=== PATIENT | male | born 1940 | race Caucasian/White ===

== ENCOUNTER 2017-11-03 12:01 | Emergency (ER) | payer MEDICARE, MEDICAID ==
[~2017-11-03] VITALS: Ht 180.3 cm; Wt 68.2 kg
[~2017-11-03 12:01] MED LIST: ACET-812 PO; AMLO5TAB4 PO; ASPI-611 PO; ATEN-169 PO; ATOR40TA PO; CHOL500049 PO; FLO0.4C PO; LIDO700A32 TOP; NITR0.4T51 SL; SYN0.1T PO; TERA2CAP4 PO
[2017-11-03] MEDS ORDERED: ketorolac tromethamine 15mg/ml inj. IM ONE (13:30)
[2017-11-03 13:57] VITALS: BP 150/87
== END 2017-11-03 14:24 | disposition home or self-care (01) ==
LOC: ER 12:02
DX: S13.4XXA Sprain of ligaments of cervical spine, initial encounter (principal); S00.81XA Abrasion of other part of head, initial encounter; S80.212A Abrasion, left knee, initial encounter; S80.211A Abrasion, right knee, initial encounter; S50.812A Abrasion of left forearm, initial encounter; I25.10 Atherosclerotic heart disease of native coronary artery without angina pectoris; E78.00 Pure hypercholesterolemia, unspecified; I10 Essential (primary) hypertension; J44.9 Chronic obstructive pulmonary disease, unspecified; E03.9 Hypothyroidism, unspecified; M19.90 Unspecified osteoarthritis, unspecified site; Z90.49 Acquired absence of other specified parts of digestive tract; Z98.890 Other specified postprocedural states; Z60.2 Problems related to living alone; Z88.0 Allergy status to penicillin; Z88.5 Allergy status to narcotic agent; Z79.82 Long term (current) use of aspirin; Z79.899 Other long term (current) drug therapy; W18.39XA Other fall on same level, initial encounter; Y93.89 Activity, other specified; Y92.89 Other specified places as the place of occurrence of the external cause; Y99.8 Other external cause status
CPT/HCPCS: 70450; 72125; 96372; 99284; J1885

== ENCOUNTER 2019-01-13 13:50 | Inpatient (IN) | payer MEDICARE, MEDICAID ==
[~2019-01-13] VITALS: Ht 182.9 cm; Wt 65.9 kg
[2019-01-13] MEDS ORDERED: ondansetron/PF 4mg/2ml inj IV ONE (14:30)
[2019-01-13] MEDS ORDERED: morphine 4 MG/ML inj SYRINge IV PRN (14:30)
[2019-01-13 14:52] LABS: CLARITY,URINE SLIGHTLY CLOUDY (Clear); COLOR,URINE YELLOW (Yellow); GLUCOSE, URINE NEGATIVE (Neg); KETONES,URINE NEGATIVE (Neg); LEUKOCYTE ESTERASE ,URINE SMALL (Neg); NITRITES, URINE NEGATIVE (Neg); OCCULT BLOOD,URINE NEGATIVE (Neg); PROTEIN,URINE TRACE mg/dl (Neg); UA COLLECTION TYPE URINAL
[2019-01-13 14:54] LABS: BASOPHILS % (AUTO) 0.9 % (0-1); EOSINOPHILS # (AUTO) 0.1 X10'3 (0-0.9); EOSINOPHILS % (AUTO) 3.1 % (0-6); HEMATOCRIT 36.3 % (42.0-52.0); HEMOGLOBIN 11.9 g/dl (14.0-17.9); LYMPHOCYTES # (AUTO) 1.1 X10'3 (1.1-4.8); LYMPHOCYTES % (AUTO) 27.7 % (21-51); MEAN CORPUSCULAR HEMOGLOBIN 29.8 PG (27.0-31.0); MEAN CORPUSCULAR HGB CONC 32.9 g/dL (33.0-36.5); MEAN CORPUSCULAR VOLUME 90.6 FL (78-98); MEAN PLATELET VOLUME 9.5 FL (7.4-10.4); MONOCYTES # (AUTO) 0.4 X10'3 (0-0.9); MONOCYTES % (AUTO) 10.7 % (2-12); NEUTROPHILS # (AUTO) 2.4 X10'3 (1.8-7.7); NEUTROPHILS % (AUTO) 57.6 % (42-75); PLATELET COUNT 103 X10'3 (140-440); RED CELL DISTRIBUTION WIDTH 15.3 % (11.5-14.5); WHITE BLOOD COUNT 4.1 X10'3 (4.5-11.0)
[2019-01-13] MEDS ORDERED: LEVO88TA2 PO (14:56)
[2019-01-13 14:59] LABS: HYALINE CASTS 0-3 /LPF (NEGATIVE); MUCUS STRANDS MANY /LPF (Neg); SQUAMOUS EPITHELIAL CELL,UR MANY /LPF (FEW)
[2019-01-13 15:00] LABS: TRANSITIONAL EPI CELLS,URINE FEW /HPF
[2019-01-13 15:01] LABS: BACTERIA,URINE FEW /HPF (Neg); RBC,URINE 0-2 /HPF (0-2)
[2019-01-13 15:07] LABS: PARTIAL THROMBOPLASTIN TIME 27 SECONDS (22-32)
[2019-01-13 15:10] LABS: ALANINE AMINOTRANSFERASE 23 U/L (12-78); ALBUMIN 3.2 G/DL (3.4-5.0); ALBUMIN/GLOBULIN RATIO 1.1 (1.1-1.5); ALKALINE PHOSPHATASE 62 IU/L (46-116); ANION GAP 4 (8-16); ASPARTATE AMINO TRANSFERASE 30 U/L (10-37); BILIRUBIN,TOTAL 0.9 MG/DL (0.1-1.0); BLOOD UREA NITROGEN 15 MG/DL (7-18); BUN/CREATININE RATIO 9.4 (5.4-32.0); CALCIUM 8.2 MG/DL (8.5-10.1); CHLORIDE 105 MMOL/L (99-107); GLUCOSE 98 MG/DL (70-104); POTASSIUM 3.9 MMOL/L (3.5-5.1); SODIUM 142 MMOL/L (135-145); TOTAL CARBON DIOXIDE 32.8 MMOL/L (24-32); TOTAL PROTEIN 6.1 G/DL (6.4-8.2); eGFR 42 ML/MIN
[2019-01-13] MEDS ORDERED: ACET-2119 PO (15:19)
[2019-01-13] MEDS ORDERED: acetaminophen 325mg tablet PO PRN ×2 (15:45)
[2019-01-13] MEDS ORDERED: nitroGLYCERIN 0.4mg SUBLingual tab SL PRN (15:45)
[2019-01-13] MEDS ORDERED: magnesium 2GM in 50ml NS 50 ML IV PRN (15:45)
[2019-01-13] MEDS ORDERED: potassium Cl 20 mEq SR tablet PO PRN ×2 (15:45)
[2019-01-13] MEDS ORDERED: magnesium 4gm in 100ml NS 100 ML IV PRN (15:45)
[2019-01-13] MEDS ORDERED: ipratropium/albuterol 3ml nebule NEB PRN (15:45)
[2019-01-13] MEDS ORDERED: docusate sod 100mg capsule PO PRN (15:45)
[2019-01-13] MEDS ORDERED: potassium CL 10mEq/100ml bag 100 ML IV PRN ×2 (15:45)
[2019-01-13] MEDS ORDERED: magnesium Cl slow-release 64mg tablet PO PRN (15:45)
[2019-01-13] MEDS ORDERED: mag hydrox/Alum hydrox/simeth 30ml oral suspension PO PRN (15:45)
[2019-01-13 18:00] VITALS: BP 148/90
--- NOTE | 2019-01-13 18:00 | NUR ---
RECEIVED PATIENT TO ROOM 4022B. A/O
--- NOTE | 2019-01-13 18:15 | NUR ---
REPORT TO IVAN LEO
--- NOTE | 2019-01-13 18:21 | NUR ---
Patient in room ORTHO 4022. I have received report from Re LEO and had the opportunity to ask questions and assume patient care.
--- NOTE | 2019-01-13 18:29 | NUR ---
Called Dr. Duenas over telephone about pt's spasm pains. Cotto's traction ordered.
[2019-01-13] MEDS ORDERED: baclofen 10mg tablet PO PRN (20:25)
[2019-01-13] MEDS: tamsulosin 0.4mg capsule PO SCH (20:44)
[2019-01-13] MEDS: atorvastatin 20mg tablet PO SCH (20:44)
[2019-01-13 22:00] VITALS: BP 133/62
[2019-01-13] MEDS: normal saline 1000ml 1,000 ML IV SCH (22:20)
[2019-01-14 01:59] LABS: COLOR,URINE YELLOW (Yellow); GLUCOSE, URINE NEGATIVE (Neg); KETONES,URINE TRACE mg/dl (Neg); LEUKOCYTE ESTERASE ,URINE SMALL (Neg); NITRITES, URINE NEGATIVE (Neg); OCCULT BLOOD,URINE NEGATIVE (Neg); PROTEIN,URINE NEGATIVE (Neg)
[2019-01-14 02:12] LABS: CLARITY,URINE SLIGHTLY CLOUDY (Clear); UA COLLECTION TYPE NON-SPECIFIED
[2019-01-14 02:14] LABS: BACTERIA,URINE 1+ /HPF (Neg); MUCUS STRANDS MODERATE /LPF (Neg); RBC,URINE 0-2 /HPF (0-2); SQUAMOUS EPITHELIAL CELL,UR MODERATE /LPF (FEW)
[2019-01-14] MEDS: normal saline 1000ml 1,000 ML IV SCH (04:15)
[2019-01-14 05:33] VITALS: BP 155/85
--- NOTE | 2019-01-14 06:18 | NUR ---
Problems reprioritized. Patient report given, questions answered & plan of care reviewed with Alessia LEO.
[2019-01-14 07:05] LABS: BASOPHILS % (AUTO) 0.7 % (0-1); EOSINOPHILS # (AUTO) 0.1 X10'3 (0-0.9); EOSINOPHILS % (AUTO) 2.4 % (0-6); LYMPHOCYTES # (AUTO) 1.2 X10'3 (1.1-4.8); LYMPHOCYTES % (AUTO) 22.9 % (21-51); MEAN CORPUSCULAR HEMOGLOBIN 29.7 PG (27.0-31.0); MEAN CORPUSCULAR HGB CONC 33.2 g/dL (33.0-36.5); MEAN CORPUSCULAR VOLUME 89.5 FL (78-98); MEAN PLATELET VOLUME 9.6 FL (7.4-10.4); MONOCYTES # (AUTO) 0.6 X10'3 (0-0.9); MONOCYTES % (AUTO) 11.1 % (2-12); NEUTROPHILS # (AUTO) 3.2 X10'3 (1.8-7.7); NEUTROPHILS % (AUTO) 62.9 % (42-75); PLATELET COUNT 101 X10'3 (140-440); RED BLOOD COUNT 4.02 X10'6 (4.70-6.10); RED CELL DISTRIBUTION WIDTH 15.4 % (11.5-14.5); WHITE BLOOD COUNT 5.2 X10'3 (4.5-11.0)
[2019-01-14 07:29] LABS: ALANINE AMINOTRANSFERASE 27 U/L (12-78); ALBUMIN 3.2 G/DL (3.4-5.0); ALBUMIN/GLOBULIN RATIO 1.1 (1.1-1.5); ALKALINE PHOSPHATASE 66 IU/L (46-116); ANION GAP 5 (8-16); ASPARTATE AMINO TRANSFERASE 29 U/L (10-37); BILIRUBIN,TOTAL 1.2 MG/DL (0.1-1.0); BLOOD UREA NITROGEN 15 MG/DL (7-18); BUN/CREATININE RATIO 9.3 (5.4-32.0); CALCIUM 8.4 MG/DL (8.5-10.1); CHLORIDE 106 MMOL/L (99-107); CREATININE 1.62 MG/DL (0.60-1.10); GLUCOSE 92 MG/DL (70-104); MAGNESIUM 1.6 MG/DL (1.5-2.4); POTASSIUM 4.3 MMOL/L (3.5-5.1); SODIUM 142 MMOL/L (135-145); TOTAL CARBON DIOXIDE 30.7 MMOL/L (24-32); TOTAL PROTEIN 6.1 G/DL (6.4-8.2); eGFR 41 ML/MIN
[2019-01-14] MEDS: K and/or MAG REPLACEMENT MC SCH (07:40)
[2019-01-14] MEDS: levoTHYROXINE 88mcg tablet PO SCH (07:57)
[2019-01-14] MEDS: enoxaparin 40mg/0.4ml syringe SQ SCH (07:58)
[2019-01-14] MEDS: atenolol 25mg tablet PO SCH (08:00)
[2019-01-14] MEDS ORDERED: aspirin 81mg tab.chew PO SCH (08:00)
[2019-01-14] MEDS ORDERED: atenolol 50mg tablet PO SCH (08:00)
--- NOTE | 2019-01-14 14:38 | NUR ---
Joint Replacement consult: Pt/caregiver seen by CHARLOTTE for written/verbal high protein ed w/ RD contact information provided. Pt agrees to cottage cheese and fruit breakfasts, raw strawberry and tomato allergies. Dietary notified and EMR updated. Addendum: 01/14/19 at [address] Amended: Links added.
[2019-01-14] MEDS: Terazosin 1mg capsule PO SCH (15:48)
[2019-01-14 18:00] VITALS: BP 134/74
--- NOTE | 2019-01-14 18:01 | NUR ---
Problems reprioritized. Patient report given, questions answered & plan of care reviewed with TRUMAN LEO.
--- NOTE | 2019-01-14 18:15 | NUR ---
Received report from Alessia LEO, assumed care of patient.
[2019-01-14] MEDS: tamsulosin 0.4mg capsule PO SCH (20:54)
[2019-01-14] MEDS: atorvastatin 20mg tablet PO SCH (20:54)
[2019-01-15] VITALS (15 sets, daily range): BP systolic 96–162; BP diastolic 52–87
--- NOTE | 2019-01-15 06:15 | NUR ---
Report given to Heena LEO.
[2019-01-15 06:44] LABS: ALANINE AMINOTRANSFERASE 23 U/L (12-78); ALKALINE PHOSPHATASE 63 IU/L (46-116); ANION GAP 8 (8-16); ASPARTATE AMINO TRANSFERASE 24 U/L (10-37); BILIRUBIN,TOTAL 1.4 MG/DL (0.1-1.0); BLOOD UREA NITROGEN 17 MG/DL (7-18); BUN/CREATININE RATIO 11.1 (5.4-32.0); CALCIUM 8.2 MG/DL (8.5-10.1); CHLORIDE 105 MMOL/L (99-107); CREATININE 1.53 MG/DL (0.60-1.10); GLUCOSE 98 MG/DL (70-104); MAGNESIUM 1.6 MG/DL (1.5-2.4); POTASSIUM 4.3 MMOL/L (3.5-5.1); SODIUM 141 MMOL/L (135-145); TOTAL CARBON DIOXIDE 28.1 MMOL/L (24-32); eGFR 44 ML/MIN
[2019-01-15 06:56] LABS: BASOPHILS # (AUTO) 0.1 X10'3 (0-0.2); BASOPHILS % (AUTO) 0.9 % (0-1); EOSINOPHILS # (AUTO) 0.1 X10'3 (0-0.9); EOSINOPHILS % (AUTO) 1.2 % (0-6); HEMATOCRIT 36.5 % (42.0-52.0); LYMPHOCYTES # (AUTO) 1.2 X10'3 (1.1-4.8); MEAN CORPUSCULAR HEMOGLOBIN 29.4 PG (27.0-31.0); MEAN CORPUSCULAR HGB CONC 32.8 g/dL (33.0-36.5); MEAN CORPUSCULAR VOLUME 89.6 FL (78-98); MEAN PLATELET VOLUME 9.2 FL (7.4-10.4); MONOCYTES # (AUTO) 0.7 X10'3 (0-0.9); MONOCYTES % (AUTO) 11.6 % (2-12); NEUTROPHILS # (AUTO) 4.4 X10'3 (1.8-7.7); NEUTROPHILS % (AUTO) 68.3 % (42-75); PLATELET COUNT 97 X10'3 (140-440); RED BLOOD COUNT 4.08 X10'6 (4.70-6.10); RED CELL DISTRIBUTION WIDTH 15.5 % (11.5-14.5); WHITE BLOOD COUNT 6.4 X10'3 (4.5-11.0)
[2019-01-15] MEDS ORDERED: acetaminophen 325mg tablet PO PRN (07:03)
[2019-01-15] MEDS: K and/or MAG REPLACEMENT MC SCH (07:08)
[2019-01-15] MEDS: atenolol 25mg tablet PO SCH (07:52)
[2019-01-15] MEDS: enoxaparin 40mg/0.4ml syringe SQ SCH (07:52)
[2019-01-15] MEDS: levoTHYROXINE 88mcg tablet PO SCH (07:52)
[2019-01-15] MEDS: Terazosin 1mg capsule PO SCH (15:33)
[2019-01-15] MEDS ORDERED: CLINDAMYCIN/D5W 900mg/50ml 50 ML IV ONE (18:00)
--- NOTE | 2019-01-15 18:21 | NUR ---
Problems reprioritized. Patient report given, questions answered & plan of care reviewed with AHMET Avila.
[2019-01-15] MEDS ORDERED: vancomycin 1,000mg inj ONE (18:42)
[2019-01-15] MEDS ORDERED: heparin 10,000 units/1 ML INJ ONE (19:14)
[2019-01-15] MEDS ORDERED: tetracaine 1% (10mg/ml) pres. free inj. ONE (20:01)
[2019-01-15] MEDS ORDERED: fentaNYL/PF 50MCG/1 ML 2ML syringe ONE (20:02)
[2019-01-15] MEDS ORDERED: MIDAZolam 5mg/5ml vial ONE (20:03)
[2019-01-15] MEDS ORDERED: ringers solution, lacted 1,000 ML IV SCH (21:17)
[2019-01-15] MEDS ORDERED: ondansetron/PF 4mg/2ml inj IV PRN (21:20)
[2019-01-15] MEDS ORDERED: meperidine/PF 25mg/ml syringe IV PRN ×3 (21:20)
[2019-01-15] MEDS ORDERED: proCHLORperazine 10 MG/2 ml inj IV PRN (21:20)
[2019-01-15] MEDS ORDERED: morphine 4 MG/ML inj SYRINge IV PRN ×2 (21:20)
--- NOTE | 2019-01-15 22:15 | NUR ---
Received from OR via BED , accompanied by Anesthesiologist DR LUQUE and report given by Anesthesiolgist. PATIENT WAKING UP, DENIES PAIN, V/S WNL, NEUROVASCULAR CHECKS INTACT, 20G PIV RUE , ISLAND DRESSING TO LEFT HIP CDI, SCD ON, TELE ON
--- NOTE | 2019-01-15 22:58 | NUR ---
Patient in room ORTHO 4022. I have received report from AHMET Naik and had the opportunity to ask questions and assume patient care. Addendum: 01/15/19 at 2258 by Margarita Bo RN Amended: Links added.
--- NOTE | 2019-01-15 23:05 | NUR ---
PATIENT ORIENTED X4, DENIES PAIN, V/S WNL, NEUROVASCULAR CHECKS INTACT, 20G PIV RUE , ISLAND DRESSING TO LEFT HIP CDI, SCD ON, TELE ON. PATIENT TAKEN TO ORTHO 4022B WITH ALL BELONGINGS AND HOOKED UP TO MONITORS IN ROOM AND REPORT GIVEN TO SEWING MACHINE REPAIRER HELPER WHO HAS TAKEN OVER PATIENT CARE.
[2019-01-15] MEDS: tamsulosin 0.4mg capsule PO SCH ×2 (23:28→23:31)
[2019-01-15] MEDS: atorvastatin 20mg tablet PO SCH ×2 (23:28→23:31)
--- NOTE | 2019-01-15 23:56 | NUR ---
Patient's sats were 87% on room air attempted to place on NC 2 L/M but patient refused Charge Nurse notified.
[2019-01-16] VITALS (12 sets, daily range): BP systolic 100–140; BP diastolic 49–72
[2019-01-16] MEDS: morphine 2 MG/ML inj. syringe IV PRN ×2 (03:05→10:39)
--- NOTE | 2019-01-16 03:42 | NUR ---
patient was moaning and was in pain, pain medication was given, island dressing to lt. hip was reinforced as it was soaked and saturated
[2019-01-16] MEDS: ondansetron/PF 4mg/2ml inj IV PRN ×2 (03:51→10:38)
--- NOTE | 2019-01-16 04:12 | NUR ---
pt was moaning and in a lot pain even after getting morphine of 2 mg, called Dr. Raymond with order to given 0.5mg q2h prn,
[2019-01-16] MEDS: HYDROmorphone inj. 0.5 MG/0.5 ML DISP.SYRIN IV PRN (04:32)
--- NOTE | 2019-01-16 05:46 | NUR ---
0.5mg of IV hydromorphone was given to patient, patient went to sleep and no note moaning at this time. F/C taken out and tolerated well and denies discomfort.
[2019-01-16] MEDS ORDERED: oxyCODONE/APAP 10/325mg tablet PO PRN (06:45)
--- NOTE | 2019-01-16 06:48 | NUR ---
Problems reprioritized. Patient report given, questions answered & plan of care reviewed with Sakina/AHMET Dockery's.
[2019-01-16 06:54] LABS: BASOPHILS % (AUTO) 0.2 % (0-1); EOSINOPHILS % (AUTO) 0.1 % (0-6); HEMOGLOBIN 9.4 g/dl (14.0-17.9); LYMPHOCYTES # (AUTO) 0.4 X10'3 (1.1-4.8); LYMPHOCYTES % (AUTO) 5.4 % (21-51); MEAN CORPUSCULAR HEMOGLOBIN 29.9 PG (27.0-31.0); MEAN CORPUSCULAR HGB CONC 33.5 g/dL (33.0-36.5); MEAN CORPUSCULAR VOLUME 89.2 FL (78-98); MEAN PLATELET VOLUME 9.7 FL (7.4-10.4); MONOCYTES # (AUTO) 0.9 X10'3 (0-0.9); MONOCYTES % (AUTO) 11.7 % (2-12); NEUTROPHILS % (AUTO) 82.6 % (42-75); PLATELET COUNT 85 X10'3 (140-440); RED BLOOD COUNT 3.13 X10'6 (4.70-6.10); RED CELL DISTRIBUTION WIDTH 14.9 % (11.5-14.5); WHITE BLOOD COUNT 7.3 X10'3 (4.5-11.0)
--- NOTE | 2019-01-16 06:57 | NUR ---
Patient in room ORTHO 4022B. I have received report from FABI ELO and had the opportunity to ask questions and assume patient care.
[2019-01-16 07:07] LABS: ALANINE AMINOTRANSFERASE 19 U/L (12-78); ALBUMIN 2.3 G/DL (3.4-5.0); ALBUMIN/GLOBULIN RATIO 0.9 (1.1-1.5); ALKALINE PHOSPHATASE 49 IU/L (46-116); ANION GAP 8 (8-16); ASPARTATE AMINO TRANSFERASE 40 U/L (10-37); BILIRUBIN,TOTAL 1.3 MG/DL (0.1-1.0); BLOOD UREA NITROGEN 22 MG/DL (7-18); BUN/CREATININE RATIO 16.2 (5.4-32.0); CALCIUM 7.6 MG/DL (8.5-10.1); CHLORIDE 104 MMOL/L (99-107); CREATININE 1.36 MG/DL (0.60-1.10); GLUCOSE 126 MG/DL (70-104); MAGNESIUM 1.3 MG/DL (1.5-2.4); POTASSIUM 4.2 MMOL/L (3.5-5.1); SODIUM 139 MMOL/L (135-145); eGFR 51 ML/MIN
[2019-01-16] MEDS: enoxaparin 40mg/0.4ml syringe SQ SCH (08:00)
[2019-01-16] MEDS: K and/or MAG REPLACEMENT MC SCH (08:00)
[2019-01-16] MEDS: levoTHYROXINE 88mcg tablet PO SCH (08:15)
[2019-01-16] MEDS: atenolol 25mg tablet PO SCH (08:15)
[2019-01-16] MEDS ORDERED: potassium Cl 20 mEq SR tablet PO PRN ×2 (09:15)
[2019-01-16] MEDS ORDERED: magnesium Cl slow-release 64mg tablet PO PRN (09:15)
--- NOTE | 2019-01-16 11:09 | NUR ---
PAGER ID: [phone] MESSAGE: Sakina [phone] re Mr Su in 4022b- pt appears dry, only 75 ml dark brown urine output so far today, intake is poor, mouth is dry. Can we start some fluids? maybe x 1 Liter? Thanks!
[2019-01-16] MEDS: lactose-reduced food (Ensure Enlive) - 237ml bottle PO SCH ×2 (13:00→18:00)
[2019-01-16] MEDS: normal saline 1000ml 1,000 ML IV SCH (13:12)
--- NOTE | 2019-01-16 13:27 | NUR ---
TC from RN: agrees to ONS and RN requests which ONS most appropriate for pt since he is willing to try drinking them post-op today. RD recommended ensure enlive TIDWM; dietary notified. Addendum: 01/16/19 at [address] Amended: Links added.
[2019-01-16] MEDS: Terazosin 1mg capsule PO SCH (16:08)
--- NOTE | 2019-01-16 18:11 | NUR ---
Problems reprioritized. Patient report given, questions answered & plan of care reviewed with TRUMAN LEO.
[2019-01-16] MEDS: tamsulosin 0.4mg capsule PO SCH (20:31)
[2019-01-16] MEDS: atorvastatin 20mg tablet PO SCH (20:31)
[2019-01-17] MEDS: normal saline 1000ml 1,000 ML IV SCH ×2 (01:42→16:07)
[2019-01-17] MEDS: oxyCODONE/APAP 10/325mg tablet PO PRN ×2 (05:39→18:11)
[2019-01-17 06:00] VITALS: BP 113/54
[2019-01-17 06:27] LABS: BASOPHILS % (AUTO) 0.1 % (0-1); EOSINOPHILS % (AUTO) 0.1 % (0-6); HEMATOCRIT 26.4 % (42.0-52.0); HEMOGLOBIN 8.9 g/dl (14.0-17.9); LYMPHOCYTES # (AUTO) 0.6 X10'3 (1.1-4.8); LYMPHOCYTES % (AUTO) 8.1 % (21-51); MEAN CORPUSCULAR HEMOGLOBIN 29.9 PG (27.0-31.0); MEAN CORPUSCULAR HGB CONC 33.7 g/dL (33.0-36.5); MEAN CORPUSCULAR VOLUME 88.8 FL (78-98); MEAN PLATELET VOLUME 9.9 FL (7.4-10.4); MONOCYTES % (AUTO) 12.7 % (2-12); NEUTROPHILS # (AUTO) 6.3 X10'3 (1.8-7.7); PLATELET COUNT 103 X10'3 (140-440); RED BLOOD COUNT 2.97 X10'6 (4.70-6.10); RED CELL DISTRIBUTION WIDTH 14.7 % (11.5-14.5)
--- NOTE | 2019-01-17 06:33 | NUR ---
Patient in room ORTHO 4022B. I have received report from TRUMAN LEO and had the opportunity to ask questions and assume patient care.
[2019-01-17 06:43] LABS: ALANINE AMINOTRANSFERASE 25 U/L (12-78); ALBUMIN 2.3 G/DL (3.4-5.0); ALBUMIN/GLOBULIN RATIO 0.8 (1.1-1.5); ALKALINE PHOSPHATASE 46 IU/L (46-116); ANION GAP 6 (8-16); ASPARTATE AMINO TRANSFERASE 72 U/L (10-37); BILIRUBIN,TOTAL 0.8 MG/DL (0.1-1.0); BLOOD UREA NITROGEN 33 MG/DL (7-18); BUN/CREATININE RATIO 18.4 (5.4-32.0); CALCIUM 7.7 MG/DL (8.5-10.1); CHLORIDE 104 MMOL/L (99-107); CREATININE 1.79 MG/DL (0.60-1.10); GLUCOSE 123 MG/DL (70-104); MAGNESIUM 1.6 MG/DL (1.5-2.4); SODIUM 138 MMOL/L (135-145); TOTAL CARBON DIOXIDE 27.6 MMOL/L (24-32); TOTAL PROTEIN 5.3 G/DL (6.4-8.2); eGFR 37 ML/MIN
[2019-01-17] MEDS: K and/or MAG REPLACEMENT MC SCH (07:49)
[2019-01-17] MEDS: lactose-reduced food (Ensure Enlive) - 237ml bottle PO SCH ×3 (07:58→18:00)
[2019-01-17] MEDS: levoTHYROXINE 88mcg tablet PO SCH (08:00)
[2019-01-17] MEDS: atenolol 25mg tablet PO SCH (08:00)
[2019-01-17] MEDS: enoxaparin 40mg/0.4ml syringe SQ SCH (08:00)
[2019-01-17] MEDS: ondansetron/PF 4mg/2ml inj IV PRN ×2 (08:01→13:55)
[2019-01-17] MEDS: HYDROmorphone inj. 0.5 MG/0.5 ML DISP.SYRIN IV PRN (08:08)
[2019-01-17 10:00] VITALS: BP 95/40
--- NOTE | 2019-01-17 11:00 | NUR ---
PAGER ID: [phone] MESSAGE: ODESSA 5430-RE: LIZA VILLAFUERTE 4024O VERNAFRMARY INEFFECTIVE, CAN WE GET ANOTHER ANTINAUSEA MED?
[2019-01-17] MEDS: metoclopramide 5 mg/ml inj IV PRN ×2 (11:30→18:10)
--- NOTE | 2019-01-17 13:09 | NUR ---
PAGER ID: [phone] MESSAGE: Sakina [phone] re Mr Su in 4450h- he is still vomiting after the reglan. Zofran due in an hour. Is there an additional antiemetic we can try?
[2019-01-17] MEDS: Terazosin 1mg capsule PO SCH (14:00)
--- NOTE | 2019-01-17 16:24 | NUR ---
PAGER ID: [phone] MESSAGE: ODESSA 5430-RE: LIZA VILLAFUERTE 1942N...ZOFRAN AND REGLAN INEFFECTIVE, PT STILL VOMITING. CAN I GET AN ORDER FOR ANOTHER ANTIEMETIC?
[2019-01-17 18:00] VITALS: BP 115/74
[2019-01-17] MEDS ORDERED: proCHLORperazine 10 MG/2 ml inj IV PRN (19:25)
[2019-01-17] MEDS: tamsulosin 0.4mg capsule PO SCH (21:04)
[2019-01-17] MEDS: atorvastatin 20mg tablet PO SCH (21:09)
[2019-01-18 05:24] LABS: BASOPHILS % (AUTO) 0.1 % (0-1); EOSINOPHILS % (AUTO) 0.3 % (0-6); HEMATOCRIT 23.9 % (42.0-52.0); HEMOGLOBIN 8.1 g/dl (14.0-17.9); LYMPHOCYTES # (AUTO) 0.5 X10'3 (1.1-4.8); LYMPHOCYTES % (AUTO) 7.1 % (21-51); MEAN CORPUSCULAR HEMOGLOBIN 30.3 PG (27.0-31.0); MEAN CORPUSCULAR VOLUME 88.9 FL (78-98); MEAN PLATELET VOLUME 9.8 FL (7.4-10.4); MONOCYTES # (AUTO) 0.8 X10'3 (0-0.9); MONOCYTES % (AUTO) 11.1 % (2-12); NEUTROPHILS # (AUTO) 5.9 X10'3 (1.8-7.7); NEUTROPHILS % (AUTO) 81.4 % (42-75); PLATELET COUNT 113 X10'3 (140-440); RED BLOOD COUNT 2.69 X10'6 (4.70-6.10); RED CELL DISTRIBUTION WIDTH 14.9 % (11.5-14.5); WHITE BLOOD COUNT 7.2 X10'3 (4.5-11.0)
[2019-01-18] MEDS: normal saline 1000ml 1,000 ML IV SCH (05:24)
[2019-01-18 05:31] LABS: ALANINE AMINOTRANSFERASE 24 U/L (12-78); ALBUMIN 2.2 G/DL (3.4-5.0); ALBUMIN/GLOBULIN RATIO 0.7 (1.1-1.5); ALKALINE PHOSPHATASE 47 IU/L (46-116); ANION GAP 6 (8-16); ASPARTATE AMINO TRANSFERASE 85 U/L (10-37); BILIRUBIN,TOTAL 0.7 MG/DL (0.1-1.0); BLOOD UREA NITROGEN 32 MG/DL (7-18); BUN/CREATININE RATIO 21.3 (5.4-32.0); CALCIUM 7.7 MG/DL (8.5-10.1); CHLORIDE 107 MMOL/L (99-107); GLUCOSE 110 MG/DL (70-104); MAGNESIUM 1.8 MG/DL (1.5-2.4); POTASSIUM 4.1 MMOL/L (3.5-5.1); SODIUM 140 MMOL/L (135-145); TOTAL CARBON DIOXIDE 27.2 MMOL/L (24-32); TOTAL PROTEIN 5.2 G/DL (6.4-8.2); eGFR 45 ML/MIN
[2019-01-18 06:10] VITALS: BP 145/70
--- NOTE | 2019-01-18 06:30 | NUR ---
Patient in room ORTHO 4022. I have received report from Pk LEO and had the opportunity to ask questions and assume patient care.
[2019-01-18] MEDS: metoclopramide 5 mg/ml inj IV PRN (07:58)
[2019-01-18] MEDS: K and/or MAG REPLACEMENT MC SCH (08:00)
[2019-01-18] MEDS: lactose-reduced food (Ensure Enlive) - 237ml bottle PO SCH ×2 (08:00→13:00)
[2019-01-18] MEDS: enoxaparin 40mg/0.4ml syringe SQ SCH (08:06)
[2019-01-18] MEDS: atenolol 25mg tablet PO SCH (08:06)
[2019-01-18] MEDS: levoTHYROXINE 88mcg tablet PO SCH (08:06)
[2019-01-18 10:00] VITALS: BP 102/60
[2019-01-18] MEDS ORDERED: magnesium hydroxide 30ml (MOM) UD suspension PO PRN (10:25)
--- NOTE | 2019-01-18 15:03 | NUR ---
Initial: Pt s/p ORIF periprosthetic left hip. Prior to surgery, PO intake 75-100% avg on meals. Post op, 0-25% PO intake, pt refusing ONS d/t receiving strawberry flavor. CHARLOTTE spoke with pt who reports raw strawberry allergy, d/w dietary. We are now sending chocolate and vanilla flavor ONS. Pt likely not eating d/t nausea and constipation, documented emesis yesterday morning and this morning. Pt constipated, LBM 01/13, pt receiving routine bowel care, reglan started yesterday, PRN MoM given 01/18, PRN colace given 01/18. Will continue to monitor PO intake and ONS acceptance. Recommendation: 1. continue heart healthy diet, ensure enlive TIDWM 2. monitor PO intake and ONS acceptance 3. routine bowel care 4. weight per rx Addendum: 01/18/19 at [address] Amended: Links added. Addendum: 01/18/19 at [address] RD agree with programming intern note
[2019-01-18] MEDS: Terazosin 1mg capsule PO SCH (15:14)
--- NOTE | 2019-01-18 16:05 | NUR ---
Patient discharged with kateryna galeano on [facility]. Patient had a cell-phone and weigher and charger along with 2 rings for his belongings. I called Marlene the care-yarder/poa to let her know and made sure she had his wallet because the patient was looking for it all around the room. She said she had his wallet and the rest of his stuff, I let him know she had his stuff and it was safe.
== END 2019-01-18 16:05 | DRG 480 ==
LOC: ER 13:51 → ED HOLD 15:45 → ORTHO 4S 17:20 → ED HOLD 17:38 → ORTHO 4S 18:43
PROVIDERS: ADMIT Family Medicine; ATTEND Internal Medicine
PROC: 0QS704Z Reposition Left Upper Femur with Internal Fixation Device, Open Approach (ICD-10-PCS; principal; 2019-01-15 20:01)
DX: S72.92XA Unspecified fracture of left femur, initial encounter for closed fracture (principal); G92 Toxic encephalopathy; M97.02XA Periprosthetic fracture around internal prosthetic left hip joint, initial encounter; D62 Acute posthemorrhagic anemia; N17.9 Acute kidney failure, unspecified; D69.6 Thrombocytopenia, unspecified; J44.9 Chronic obstructive pulmonary disease, unspecified; E03.9 Hypothyroidism, unspecified; E78.00 Pure hypercholesterolemia, unspecified; M19.90 Unspecified osteoarthritis, unspecified site; E78.5 Hyperlipidemia, unspecified; I12.9 Hypertensive chronic kidney disease with stage 1 through stage 4 chronic kidney disease, or unspecified chronic kidney disease; I25.10 Atherosclerotic heart disease of native coronary artery without angina pectoris; Z60.2 Problems related to living alone; I73.9 Peripheral vascular disease, unspecified; N18.3 Chronic kidney disease, stage 3 (moderate); N40.0 Benign prostatic hyperplasia without lower urinary tract symptoms; Z90.49 Acquired absence of other specified parts of digestive tract; Z95.1 Presence of aortocoronary bypass graft; V19.9XXA Pedal cyclist (driver) (passenger) injured in unspecified traffic accident, initial encounter; Y93.55 Activity, bike riding; Y92.89 Other specified places as the place of occurrence of the external cause; Y99.8 Other external cause status; Z88.0 Allergy status to penicillin; Z88.5 Allergy status to narcotic agent; Z79.899 Other long term (current) drug therapy; Z79.82 Long term (current) use of aspirin
CPT/HCPCS: 36415; 71045; 73502; 73560; 73700; 80053; 81001; 83735; 84443; 85025; 85610; 85730; 86885; 86900; 86901; 87081; 87088; 93005; 94640; 94760; 97110; 97116; 97162; 97530; 99285; A4215; A6258; A7000; C1758; G0378; J0780; J1170; J1644; J1650; J2250; J2270; J2405; J2765; J3010; J3370; J3490; J7030; J7120

== ENCOUNTER 2019-01-28 09:37 | Outpatient (CLI) | payer MEDICARE, MEDICAID ==
[~2019-01-28 09:37] MED LIST changes: +ACET-2119 PO; -ACET-812 PO; -AMLO5TAB4 PO; -CHOL500049 PO; +LEVO88TA2 PO; -LIDO700A32 TOP; -SYN0.1T PO
== END 2019-01-28 11:30 | disposition home or self-care (01) ==
LOC: ORTHO 09:37
PROVIDERS: ATTEND Nurse Practitioner
DX: M97.02XD Periprosthetic fracture around internal prosthetic left hip joint, subsequent encounter (principal); E03.9 Hypothyroidism, unspecified; I25.709 Atherosclerosis of coronary artery bypass graft(s), unspecified, with unspecified angina pectoris; I73.9 Peripheral vascular disease, unspecified; J44.9 Chronic obstructive pulmonary disease, unspecified; M16.12 Unilateral primary osteoarthritis, left hip; M62.81 Muscle weakness (generalized); N18.3 Chronic kidney disease, stage 3 (moderate); N40.0 Benign prostatic hyperplasia without lower urinary tract symptoms; R26.2 Difficulty in walking, not elsewhere classified; F17.200 Nicotine dependence, unspecified, uncomplicated; I25.2 Old myocardial infarction; I10 Essential (primary) hypertension; Z88.0 Allergy status to penicillin; Z91.018 Allergy to other foods; Z88.8 Allergy status to other drugs, medicaments and biological substances
CPT/HCPCS: G0463

== ENCOUNTER 2019-02-04 09:37 | Outpatient (CLI) | payer MEDICARE, MEDICAID | END 2019-02-04 10:45 | LOC: ORTHO 09:37 | PROVIDERS: ATTEND Nurse Practitioner | DX: M97.02XD Periprosthetic fracture around internal prosthetic left hip joint, subsequent encounter (principal); E03.9 Hypothyroidism, unspecified; I25.709 Atherosclerosis of coronary artery bypass graft(s), unspecified, with unspecified angina pectoris; I73.9 Peripheral vascular disease, unspecified; J44.9 Chronic obstructive pulmonary disease, unspecified; M16.12 Unilateral primary osteoarthritis, left hip; N18.3 Chronic kidney disease, stage 3 (moderate); M62.81 Muscle weakness (generalized); N40.0 Benign prostatic hyperplasia without lower urinary tract symptoms; R26.2 Difficulty in walking, not elsewhere classified; F17.200 Nicotine dependence, unspecified, uncomplicated; I25.2 Old myocardial infarction; I10 Essential (primary) hypertension; Z88.0 Allergy status to penicillin; Z91.018 Allergy to other foods; Z88.8 Allergy status to other drugs, medicaments and biological substances | CPT/HCPCS: 73502; G0463 ==

== ENCOUNTER 2019-03-04 09:18 | Outpatient (CLI) | payer MEDICARE, MEDICAID ==
[2019-03-04 09:20] VITALS: BP 144/71
== END 2019-03-04 09:38 | disposition home or self-care (01) ==
LOC: ORTHO 09:18
PROVIDERS: ATTEND Nurse Practitioner
DX: M97.02XD Periprosthetic fracture around internal prosthetic left hip joint, subsequent encounter (principal)
CPT/HCPCS: 73502; G0463

== ENCOUNTER 2019-04-28 03:40 | Emergency (ER) | payer MEDICARE, MEDICAID ==
[~2019-04-28] VITALS: Ht 182.9 cm; Wt 63.6 kg
[2019-04-28 04:13] LABS: CLARITY,URINE CLEAR (Clear); COLOR,URINE YELLOW (Yellow); GLUCOSE, URINE NEGATIVE (Neg); KETONES,URINE NEGATIVE (Neg); LEUKOCYTE ESTERASE ,URINE NEGATIVE (Neg); NITRITES, URINE NEGATIVE (Neg); OCCULT BLOOD,URINE TRACE-LYSED (Neg); PROTEIN,URINE NEGATIVE (Neg)
[2019-04-28 04:19] LABS: BACTERIA,URINE FEW /HPF (Neg); RBC,URINE 0-2 /HPF (0-2); UA COLLECTION TYPE STRAIGHT CATH; WBC,URINE 0-4 /HPF (0-4)
[2019-04-28 04:20] LABS: SQUAMOUS EPITHELIAL CELL,UR FEW /LPF (FEW)
[2019-04-28] MEDS ORDERED: PHEN-824 PO (04:28)
[2019-04-28 04:30] VITALS: BP 147/87
== END 2019-04-28 04:36 | disposition home or self-care (01) ==
LOC: ER 03:40
DX: R30.0 Dysuria (principal); I25.10 Atherosclerotic heart disease of native coronary artery without angina pectoris; E78.00 Pure hypercholesterolemia, unspecified; I10 Essential (primary) hypertension; J44.9 Chronic obstructive pulmonary disease, unspecified; E03.9 Hypothyroidism, unspecified; M19.90 Unspecified osteoarthritis, unspecified site; Z90.49 Acquired absence of other specified parts of digestive tract; Z90.89 Acquired absence of other organs; Z98.890 Other specified postprocedural states; Z60.2 Problems related to living alone; Z88.0 Allergy status to penicillin; Z91.018 Allergy to other foods; Z79.82 Long term (current) use of aspirin; Z79.899 Other long term (current) drug therapy
CPT/HCPCS: 81001; 99284

== ENCOUNTER 2019-08-09 17:02 | Inpatient (IN) | payer MEDICARE, MEDICAID ==
[~2019-08-09] VITALS: Ht 182.9 cm; Wt 63.6 kg
[~2019-08-09 17:02] MED LIST changes: +PHEN-824 PO
--- NOTE | 2019-08-09 17:04 | NUR ---
[facility] [id number]
[2019-08-09] MEDS ORDERED: acetaminophen 325mg tablet PO ONE (18:20)
[2019-08-09] MEDS ORDERED: LOSA50TA64 PO (18:55)
[2019-08-09 20:30] LABS: BASOPHILS % (AUTO) 0.7 % (0-1); EOSINOPHILS # (AUTO) 0.1 X10'3 (0-0.9); EOSINOPHILS % (AUTO) 1.8 % (0-6); HEMATOCRIT 33.3 % (42.0-52.0); HEMOGLOBIN 10.8 g/dl (14.0-17.9); LYMPHOCYTES # (AUTO) 1.3 X10'3 (1.1-4.8); LYMPHOCYTES % (AUTO) 23.7 % (21-51); MEAN CORPUSCULAR HEMOGLOBIN 28.5 PG (27.0-31.0); MEAN CORPUSCULAR HGB CONC 32.5 g/dL (33.0-36.5); MEAN CORPUSCULAR VOLUME 87.6 FL (78-98); MEAN PLATELET VOLUME 9.2 FL (7.4-10.4); MONOCYTES # (AUTO) 0.5 X10'3 (0-0.9); MONOCYTES % (AUTO) 9.6 % (2-12); NEUTROPHILS # (AUTO) 3.5 X10'3 (1.8-7.7); NEUTROPHILS % (AUTO) 64.2 % (42-75); PLATELET COUNT 93 X10'3 (140-440); RED CELL DISTRIBUTION WIDTH 17.3 % (11.5-14.5); WHITE BLOOD COUNT 5.5 X10'3 (4.5-11.0)
[2019-08-09 20:40] LABS: ALANINE AMINOTRANSFERASE 22 U/L (12-78); ALBUMIN 2.9 G/DL (3.4-5.0); ALBUMIN/GLOBULIN RATIO 1.1 (1.1-1.5); ALKALINE PHOSPHATASE 79 IU/L (46-116); ANION GAP 8 (8-16); ASPARTATE AMINO TRANSFERASE 23 U/L (10-37); BILIRUBIN,TOTAL 0.8 MG/DL (0.1-1.0); BLOOD UREA NITROGEN 12 MG/DL (7-18); BUN/CREATININE RATIO 7.7 (5.4-32.0); CHLORIDE 110 MMOL/L (99-107); CREATININE 1.56 MG/DL (0.60-1.10); GLUCOSE 101 MG/DL (70-104); POTASSIUM 3.5 MMOL/L (3.5-5.1); SODIUM 148 MMOL/L (135-145); TOTAL CARBON DIOXIDE 29.9 MMOL/L (24-32); TOTAL PROTEIN 5.5 G/DL (6.4-8.2); eGFR 43 ML/MIN
[2019-08-09] MEDS ORDERED: normal saline 1000ML IV soln IVB ONE ×2 (21:20→23:50)
[2019-08-09] MEDS ORDERED: iohexol 300mg/ml 100ml inj. ONE (21:33)
--- NOTE | 2019-08-09 21:37 | NUR ---
Pt has GFR of 43 and has stage 2 kidney disease, discussed with LARA Wu about giving contrast, she insisted
[2019-08-09] MEDS ORDERED: iohexol 350MG/ML 100ml bottle IV ONE (23:36)
[2019-08-09 23:45] LABS: BASOPHILS % (AUTO) 0.8 % (0-1); EOSINOPHILS # (AUTO) 0.1 X10'3 (0-0.9); EOSINOPHILS % (AUTO) 2.8 % (0-6); HEMATOCRIT 33.6 % (42.0-52.0); HEMOGLOBIN 10.9 g/dl (14.0-17.9); LYMPHOCYTES # (AUTO) 1.4 X10'3 (1.1-4.8); LYMPHOCYTES % (AUTO) 29.5 % (21-51); MEAN CORPUSCULAR HEMOGLOBIN 28.3 PG (27.0-31.0); MEAN CORPUSCULAR HGB CONC 32.3 g/dL (33.0-36.5); MEAN CORPUSCULAR VOLUME 87.7 FL (78-98); MEAN PLATELET VOLUME 8.8 FL (7.4-10.4); MONOCYTES # (AUTO) 0.5 X10'3 (0-0.9); MONOCYTES % (AUTO) 10.3 % (2-12); NEUTROPHILS # (AUTO) 2.7 X10'3 (1.8-7.7); NEUTROPHILS % (AUTO) 56.6 % (42-75); PLATELET COUNT 96 X10'3 (140-440); RED BLOOD COUNT 3.83 X10'6 (4.70-6.10); RED CELL DISTRIBUTION WIDTH 17.1 % (11.5-14.5); WHITE BLOOD COUNT 4.8 X10'3 (4.5-11.0)
[2019-08-10] VITALS (8 sets, daily range): BP systolic 134–171; BP diastolic 71–85
[2019-08-10] MEDS ORDERED: nitroGLYCERIN 0.4mg SUBLingual tab SL SCH (01:50)
[2019-08-10] MEDS ORDERED: ondansetron/PF 4mg/2ml inj IV PRN (01:50)
[2019-08-10] MEDS ORDERED: magnesium hydroxide 30ml (MOM) UD suspension PO PRN (01:50)
[2019-08-10] MEDS ORDERED: potassium CL 10mEq/100ml bag 100 ML IV PRN ×2 (01:50)
[2019-08-10] MEDS ORDERED: potassium Cl 20 mEq SR tablet PO PRN ×2 (01:50)
[2019-08-10] MEDS ORDERED: mag hydrox/Alum hydrox/simeth 30ml oral suspension PO PRN (01:50)
[2019-08-10] MEDS ORDERED: acetaminophen 325mg tablet PO PRN (01:50)
--- NOTE | 2019-08-10 02:50 | NUR ---
received report from Sixto LEO ER, had opportunity to ask questions, VS stable, on RA, A&O X4.
--- NOTE | 2019-08-10 03:45 | NUR ---
spoke with DR. Raymond about pt BP, after further investigation of CT he has agreed that pt blood pressure is too high and morning dose of Losartan will be given early.
[2019-08-10] MEDS: normal saline 1000ml 1,000 ML IV SCH ×3 (04:00→20:30)
[2019-08-10] MEDS: losartan 50mg tablet PO SCH (04:04)
[2019-08-10 06:15] LABS: BASOPHILS % (AUTO) 0.9 % (0-1); EOSINOPHILS # (AUTO) 0.1 X10'3 (0-0.9); HEMATOCRIT 33.3 % (42.0-52.0); LYMPHOCYTES # (AUTO) 1.3 X10'3 (1.1-4.8); MEAN CORPUSCULAR HEMOGLOBIN 28.7 PG (27.0-31.0); MEAN CORPUSCULAR VOLUME 87.1 FL (78-98); MEAN PLATELET VOLUME 9.4 FL (7.4-10.4); MONOCYTES # (AUTO) 0.5 X10'3 (0-0.9); MONOCYTES % (AUTO) 10.7 % (2-12); NEUTROPHILS # (AUTO) 2.5 X10'3 (1.8-7.7); NEUTROPHILS % (AUTO) 56.4 % (42-75); PLATELET COUNT 93 X10'3 (140-440); RED BLOOD COUNT 3.82 X10'6 (4.70-6.10); RED CELL DISTRIBUTION WIDTH 16.3 % (11.5-14.5); WHITE BLOOD COUNT 4.4 X10'3 (4.5-11.0)
--- NOTE | 2019-08-10 06:28 | NUR ---
Problems reprioritized. Patient report given, questions answered & plan of care reviewed with Thu LEO.
[2019-08-10 06:35] LABS: ALANINE AMINOTRANSFERASE 21 U/L (12-78); ALBUMIN 2.6 G/DL (3.4-5.0); ALBUMIN/GLOBULIN RATIO 0.9 (1.1-1.5); ALKALINE PHOSPHATASE 78 IU/L (46-116); ANION GAP 3 (8-16); ASPARTATE AMINO TRANSFERASE 25 U/L (10-37); BLOOD UREA NITROGEN 11 MG/DL (7-18); BUN/CREATININE RATIO 8.2 (5.4-32.0); CALCIUM 7.5 MG/DL (8.5-10.1); CHLORIDE 110 MMOL/L (99-107); CREATININE 1.34 MG/DL (0.60-1.10); GLUCOSE 82 MG/DL (70-104); POTASSIUM 3.7 MMOL/L (3.5-5.1); SODIUM 144 MMOL/L (135-145); TOTAL CARBON DIOXIDE 30.8 MMOL/L (24-32); TOTAL PROTEIN 5.4 G/DL (6.4-8.2); eGFR 51 ML/MIN
--- NOTE | 2019-08-10 06:41 | NUR ---
Patient in room PCU 3016. I have received report from [facility] RN and had the opportunity to ask questions and assume patient care. Patient awake in bed and resting comfortably. In no acute distress. All immediate needs met at this time.
--- NOTE | 2019-08-10 06:42 | NUR ---
Patient in room PCU 3016. I have received report from Akil LEO and had the opportunity to ask questions and assume patient care. Patient resting comfortably and all current needs met
[2019-08-10] MEDS: K and/or MAG REPLACEMENT MC SCH ×2 (08:00→20:00)
[2019-08-10] MEDS: levoTHYROXINE 88mcg tablet PO SCH (08:29)
[2019-08-10] MEDS: metoprolol tartrate 12.5mg (1/2 tablet) PO SCH ×2 (08:32→20:30)
[2019-08-10] MEDS ORDERED: Terazosin 1mg capsule PO SCH (14:00)
[2019-08-10] MEDS: Terazosin 1mg capsule PO SCH (16:39)
--- NOTE | 2019-08-10 18:18 | NUR ---
[place] documentation: I have reviewed and agree with all interventions, assessments performed and documented by AHMET To. [place] Medication Administration: For this medication-pass time frame, all medication were reviewed, dispensed, administered and documented per hospital policy by AHMET To.
--- NOTE | 2019-08-10 18:30 | NUR ---
Patient in room PCU 3010Q. I have received report from AHMET Andino and had the opportunity to ask questions and assume patient care.
[2019-08-10] MEDS: atorvastatin 20mg tablet PO SCH (20:31)
[2019-08-10] MEDS: tamsulosin 0.4mg capsule PO SCH (20:31)
[2019-08-11] MEDS ORDERED: LORazepam 2 mg/ml vial IV ONE ×2 (00:10→05:50)
--- NOTE | 2019-08-11 00:30 | NUR ---
Pt woke up confused, his IV line was broken and blood was running through, did not believe he was in the hospital, was demanding the IV be removed from his arm and stated he was going to walk home. Patient became aggressive and would not allow help to sit with unstable feet. Security was called up for assist. Granddaughter Marlene - JIM - was called to speak with patient. She reports she has never seen him this way except when he woke up from sedation. Was unable to console patient. MD notified, order for Ativan obtained. Patient is now resting comfortably 45 minutes later.
[2019-08-11 02:00] VITALS: BP 133/90
--- NOTE | 2019-08-11 03:55 | NUR ---
Patient pulled IV and tele; attempting to get out of bed. MD notified, ordered sitter and ativan PO q3h PRN agitation.
[2019-08-11] MEDS: LORazepam 1 MG tablet PO PRN ×2 (04:01→17:45)
[2019-08-11] MEDS: normal saline 1000ml 1,000 ML IV SCH ×2 (04:51→04:52)
[2019-08-11 05:36] LABS: BASOPHILS % (AUTO) 0.8 % (0-1); EOSINOPHILS # (AUTO) 0.1 X10'3 (0-0.9); EOSINOPHILS % (AUTO) 3.1 % (0-6); HEMATOCRIT 34.8 % (42.0-52.0); HEMOGLOBIN 11.3 g/dl (14.0-17.9); LYMPHOCYTES # (AUTO) 1.4 X10'3 (1.1-4.8); LYMPHOCYTES % (AUTO) 29.8 % (21-51); MEAN CORPUSCULAR HEMOGLOBIN 28.3 PG (27.0-31.0); MEAN CORPUSCULAR HGB CONC 32.6 g/dL (33.0-36.5); MEAN PLATELET VOLUME 9.4 FL (7.4-10.4); MONOCYTES # (AUTO) 0.5 X10'3 (0-0.9); MONOCYTES % (AUTO) 9.5 % (2-12); NEUTROPHILS # (AUTO) 2.7 X10'3 (1.8-7.7); NEUTROPHILS % (AUTO) 56.8 % (42-75); PLATELET COUNT 94 X10'3 (140-440); RED CELL DISTRIBUTION WIDTH 17.1 % (11.5-14.5); WHITE BLOOD COUNT 4.7 X10'3 (4.5-11.0)
[2019-08-11 05:43] LABS: ALANINE AMINOTRANSFERASE 23 U/L (12-78); ALBUMIN 2.8 G/DL (3.4-5.0); ALKALINE PHOSPHATASE 81 IU/L (46-116); ANION GAP 8 (8-16); ASPARTATE AMINO TRANSFERASE 29 U/L (10-37); BLOOD UREA NITROGEN 9 MG/DL (7-18); BUN/CREATININE RATIO 6.1 (5.4-32.0); CALCIUM 8.1 MG/DL (8.5-10.1); CHLORIDE 112 MMOL/L (99-107); CREATININE 1.48 MG/DL (0.60-1.10); GLUCOSE 95 MG/DL (70-104); POTASSIUM 3.6 MMOL/L (3.5-5.1); SODIUM 147 MMOL/L (135-145); TOTAL CARBON DIOXIDE 27.4 MMOL/L (24-32); TOTAL PROTEIN 5.7 G/DL (6.4-8.2); eGFR 46 ML/MIN
--- NOTE | 2019-08-11 05:51 | NUR ---
Restraints initiated. Patient kicking, hitting biting and digging nails into staff/digging nails into self. Restraint order received. Additional medication order received.
--- NOTE | 2019-08-11 06:05 | NUR ---
Administered dose of IV ativan. Pt IV bleeding as well as hands where patient dug nails into own hands. In addition, patient has blood coming from a small skin tear under ID wristband on left side. Unable to inventory injuries as patient is clenching fists. Will reassess for injuries once patient has calmed.
--- NOTE | 2019-08-11 06:31 | NUR ---
Problems reprioritized. Patient report given, questions answered & plan of care reviewed with AHMET Andino.
--- NOTE | 2019-08-11 06:43 | NUR ---
Patient in room U 3023A. I have received report from Sandra LEO and had the opportunity to ask questions and assume patient care. Patient stable upon transfer of care. Patient sitter in room.
--- NOTE | 2019-08-11 06:45 | NUR ---
Patient in room PCU 3023. I have received report from Sandra LEO and had the opportunity to ask questions and assume patient care. Patient in bed in 3 point restraints. Sitter present bedside.
[2019-08-11 07:00] VITALS: BP 160/90
[2019-08-11] MEDS: K and/or MAG REPLACEMENT MC SCH ×2 (08:00→20:00)
[2019-08-11] MEDS: levoTHYROXINE 88mcg tablet PO SCH (08:00)
[2019-08-11] MEDS: losartan 50mg tablet PO SCH (08:00)
[2019-08-11] MEDS: metoprolol tartrate 12.5mg (1/2 tablet) PO SCH ×2 (08:00→20:00)
[2019-08-11] MEDS ORDERED: LORazepam 2 mg/ml vial IM ONE (09:10)
--- NOTE | 2019-08-11 09:12 | NUR ---
New order from Dr. Curry: 0.5 mg IM ativan once.
[2019-08-11] MEDS ORDERED: nitroGLYCERIN 0.4mg SUBLingual tab SL PRN (10:45)
[2019-08-11 11:00] VITALS: BP 157/91
--- NOTE | 2019-08-11 13:34 | NUR ---
Paged Dr. Curry. Rayray Su [id number]. FYI assessment notes unequal pupil size (L2,R4) with right sided periorbital edema and mild right sided facial droop. [employer] Duster strength equal bilaterally. Please advise if new orders. Thu 7998
[2019-08-11] MEDS: Terazosin 1mg capsule PO SCH (14:00)
[2019-08-11 15:00] VITALS: BP 170/85
--- NOTE | 2019-08-11 17:00 | NUR ---
Placed patient valuable belongings in clear medication bags and had JIM Rea "Marlene" Arleen pick them up in lobby at 1700. Items are as listed: 1 cell phone, 1 cell phone security control center operator, 1 wrist watch, 2 rings, 1 wallet. Patient has change of clothes in patient belongings bag in bedside table in room 3023A.
--- NOTE | 2019-08-11 17:55 | NUR ---
Bladder scan shows [address] page [address] Curry.
--- NOTE | 2019-08-11 17:56 | NUR ---
PAGER ID: [phone] MESSAGE: RE: Rayray Su [id number]. Patient has not voided. Bladder scan shows 600 cc retained urine. Any new orders? Thank you. Thu Sheikh Addendum: 08/11/19 at 1757 by Thu Walters RN Per Dr. Curry: Place sainz catheter. Continue Normal saline @ 100 mL/hour.
[2019-08-11 18:00] VITALS: BP 179/96
[2019-08-11] MEDS ORDERED: LIDOcaine 2% 10ml TOPICAL JELLY (Urojet) TP ONE (18:00)
--- NOTE | 2019-08-11 18:15 | NUR ---
Patient in room PCU 3023. I have received report from Thu LEO and had the opportunity to ask questions and assume patient care.
[2019-08-11] MEDS: atorvastatin 20mg tablet PO SCH (21:00)
[2019-08-11] MEDS: tamsulosin 0.4mg capsule PO SCH (21:27)
[2019-08-11 22:00] VITALS: BP 142/68
--- NOTE | 2019-08-11 22:00 | NUR ---
Placed a sainz in patient he tolerated it well and is resting comfortably
[2019-08-12 02:30] VITALS: BP_SYST 100; BP_SYST 128; BP_DIAS 64
[2019-08-12] MEDS: normal saline 1000ml 1,000 ML IV SCH ×3 (04:57→11:46)
[2019-08-12 05:53] LABS: BASOPHILS % (AUTO) 0.6 % (0-1); EOSINOPHILS # (AUTO) 0.1 X10'3 (0-0.9); EOSINOPHILS % (AUTO) 1.2 % (0-6); HEMATOCRIT 31.3 % (42.0-52.0); HEMOGLOBIN 10.1 g/dl (14.0-17.9); LYMPHOCYTES # (AUTO) 1.1 X10'3 (1.1-4.8); LYMPHOCYTES % (AUTO) 16.8 % (21-51); MEAN CORPUSCULAR HEMOGLOBIN 28.3 PG (27.0-31.0); MEAN CORPUSCULAR HGB CONC 32.1 g/dL (33.0-36.5); MEAN CORPUSCULAR VOLUME 88.1 FL (78-98); MEAN PLATELET VOLUME 9.6 FL (7.4-10.4); MONOCYTES # (AUTO) 0.7 X10'3 (0-0.9); MONOCYTES % (AUTO) 10.9 % (2-12); NEUTROPHILS # (AUTO) 4.5 X10'3 (1.8-7.7); NEUTROPHILS % (AUTO) 70.5 % (42-75); PLATELET COUNT 94 X10'3 (140-440); RED BLOOD COUNT 3.56 X10'6 (4.70-6.10); WHITE BLOOD COUNT 6.4 X10'3 (4.5-11.0)
[2019-08-12 06:00] VITALS: BP 147/69
[2019-08-12 06:08] LABS: ALANINE AMINOTRANSFERASE 21 U/L (12-78); ALBUMIN 2.4 G/DL (3.4-5.0); ALKALINE PHOSPHATASE 66 IU/L (46-116); ANION GAP 7 (8-16); ASPARTATE AMINO TRANSFERASE 33 U/L (10-37); BLOOD UREA NITROGEN 14 MG/DL (7-18); BUN/CREATININE RATIO 7.9 (5.4-32.0); CHLORIDE 113 MMOL/L (99-107); CREATININE 1.77 MG/DL (0.60-1.10); GLUCOSE 84 MG/DL (70-104); POTASSIUM 3.7 MMOL/L (3.5-5.1); SODIUM 147 MMOL/L (135-145); TOTAL CARBON DIOXIDE 27.5 MMOL/L (24-32); TOTAL PROTEIN 4.9 G/DL (6.4-8.2); eGFR 37 ML/MIN
--- NOTE | 2019-08-12 06:15 | NUR ---
Problems reprioritized. Patient report given, questions answered & plan of care reviewed with Thu LEO.
--- NOTE | 2019-08-12 06:21 | NUR ---
Patient in room PCU 3023. I have received report from Hilda LEO and had the opportunity to ask questions and assume patient care. Patient stable upon transition of care. all current needs met
--- NOTE | 2019-08-12 06:25 | NUR ---
Patient in room PCU 3023. I have received report from Hilda LEO and had the opportunity to ask questions and assume patient care. Patient in bed resting comfortably. Sitter present bedside. In no acute distress. Patient in 3 point soft restraints. No circulatory issues noted at this time.
[2019-08-12] MEDS: K and/or MAG REPLACEMENT MC SCH ×2 (08:00→20:00)
[2019-08-12] MEDS: levoTHYROXINE 88mcg tablet PO SCH (08:52)
[2019-08-12] MEDS: losartan 50mg tablet PO SCH (08:52)
[2019-08-12] MEDS: metoprolol tartrate 12.5mg (1/2 tablet) PO SCH ×2 (08:52→20:14)
--- NOTE | 2019-08-12 09:30 | NUR ---
Bess Hubbard library customer service clerk/social work program coordinator connected to patient's residence stated that the patient is still not at his baseline and he would not be safe to be discharged to his home alone. She gave her business card and personal cell phone for any questions related to the patient's normal status and mentation. [phone] cell phone and [phone] phone for [facility]. Bess's card is in the patient's chart
--- NOTE | 2019-08-12 10:09 | NUR ---
New orders from Dr. Curry: D/C sitter, PT eval and treat, D/C sainz, straight cath if urinary retention < 400 mL.
--- NOTE | 2019-08-12 10:12 | NUR ---
New order from Dr. Curry: Colace 100 mg once.
[2019-08-12] MEDS ORDERED: docusate sod 100mg capsule PO ONE (10:15)
--- NOTE | 2019-08-12 10:16 | NUR ---
Dr Curry bedside with Bess Hubbard - Service Coodinator from [facility] which is where patient resides. Discussed patient's baseline mental status with Dr. Curry as Bess is concerned patient is not back to baseline in order to safely discharge. Per Dr. Curry, patient is stable for discharge today.
[2019-08-12 11:00] VITALS: BP 118/68
[2019-08-12] MEDS ORDERED: FLO0.4C PO (11:53)
[2019-08-12 15:00] VITALS: BP 149/70
--- NOTE | 2019-08-12 15:00 | NUR ---
Bladder scan shows 52 mL urine. Patient offered urinal to void. Patient denies urge to void.
[2019-08-12] MEDS: Terazosin 1mg capsule PO SCH (16:14)
--- NOTE | 2019-08-12 17:41 | NUR ---
Paged Dr. Curry: PAGER ID: [phone] MESSAGE: RE: Rayray Su [id number]. FYI - PT was never able to come to evaluate patient today. Patient becoming increasingly agitated. He has not voided. Last bladder scan at 1500 showed 52 cc urine. Patient refusing bladder scan. Thu 2313
--- NOTE | 2019-08-12 17:56 | NUR ---
Per Dr. Curry monitor for need to void. No new orders at this time.
[2019-08-12 18:00] VITALS: BP 157/53
--- NOTE | 2019-08-12 18:13 | NUR ---
Problems reprioritized. Patient report given to Axel RN, questions answered & plan of care reviewed. Patient stable at transfer of care.
--- NOTE | 2019-08-12 18:23 | NUR ---
Problems reprioritized. Patient report given, questions answered & plan of care reviewed with Axel RN. Patient stable at transfer of care.
--- NOTE | 2019-08-12 18:28 | NUR ---
[place]ee documentation: I have reviewed and agree with all interventions, assessments performed and documented by Zuleika LEO. [place] Medication Administration: For this medication-pass time frame, all medication were reviewed, dispensed, administered and documented per hospital policy by AHMET To.
--- NOTE | 2019-08-12 18:30 | NUR ---
Patient in room PCU 3014. I have received report from Thu LEO and had the opportunity to ask questions and assume patient care.
[2019-08-12] MEDS: tamsulosin 0.4mg capsule PO SCH (20:14)
[2019-08-12] MEDS: atorvastatin 20mg tablet PO SCH (20:15)
[2019-08-12 23:00] VITALS: BP 151/72
[2019-08-13 03:00] VITALS: BP 148/92
[2019-08-13 06:00] VITALS: BP 163/78
[2019-08-13 06:11] LABS: BASOPHILS # (AUTO) 0.1 X10'3 (0-0.2); BASOPHILS % (AUTO) 1.1 % (0-1); EOSINOPHILS # (AUTO) 0.2 X10'3 (0-0.9); EOSINOPHILS % (AUTO) 4.9 % (0-6); HEMATOCRIT 31.8 % (42.0-52.0); HEMOGLOBIN 10.4 g/dl (14.0-17.9); LYMPHOCYTES % (AUTO) 20.9 % (21-51); MEAN CORPUSCULAR HEMOGLOBIN 28.4 PG (27.0-31.0); MEAN CORPUSCULAR HGB CONC 32.6 g/dL (33.0-36.5); MEAN CORPUSCULAR VOLUME 87.1 FL (78-98); MEAN PLATELET VOLUME 9.5 FL (7.4-10.4); MONOCYTES # (AUTO) 0.5 X10'3 (0-0.9); MONOCYTES % (AUTO) 10.8 % (2-12); NEUTROPHILS % (AUTO) 62.3 % (42-75); PLATELET COUNT 102 X10'3 (140-440); RED BLOOD COUNT 3.65 X10'6 (4.70-6.10); RED CELL DISTRIBUTION WIDTH 16.6 % (11.5-14.5); WHITE BLOOD COUNT 4.9 X10'3 (4.5-11.0)
--- NOTE | 2019-08-13 06:19 | NUR ---
Problems reprioritized. Patient report given, questions answered & plan of care reviewed with Adilson RN.
--- NOTE | 2019-08-13 06:20 | NUR ---
Patient in room PCU 3015. I have received report from AHMET Reyna and had the opportunity to ask questions and assume patient care.
[2019-08-13 06:30] LABS: ALANINE AMINOTRANSFERASE 22 U/L (12-78); ALBUMIN 2.5 G/DL (3.4-5.0); ALKALINE PHOSPHATASE 68 IU/L (46-116); ANION GAP 7 (8-16); ASPARTATE AMINO TRANSFERASE 34 U/L (10-37); BILIRUBIN,TOTAL 1.2 MG/DL (0.1-1.0); BLOOD UREA NITROGEN 17 MG/DL (7-18); BUN/CREATININE RATIO 11.3 (5.4-32.0); CALCIUM 7.9 MG/DL (8.5-10.1); CHLORIDE 114 MMOL/L (99-107); CREATININE 1.51 MG/DL (0.60-1.10); GLUCOSE 90 MG/DL (70-104); POTASSIUM 3.2 MMOL/L (3.5-5.1); SODIUM 146 MMOL/L (135-145); TOTAL CARBON DIOXIDE 25.1 MMOL/L (24-32); TOTAL PROTEIN 5.1 G/DL (6.4-8.2); eGFR 45 ML/MIN
[2019-08-13] MEDS: K and/or MAG REPLACEMENT MC SCH (08:00)
[2019-08-13] MEDS: losartan 50mg tablet PO SCH (08:10)
[2019-08-13] MEDS: levoTHYROXINE 88mcg tablet PO SCH (08:11)
[2019-08-13] MEDS: metoprolol tartrate 12.5mg (1/2 tablet) PO SCH (08:11)
--- NOTE | 2019-08-13 10:30 | NUR ---
Patient complaining of lower stomach/pelvic pressure/discomfort, bladder scanned pt to find 446 cc's in bladder. Per MD orders, performed straight catheterization for pt and received 800 cc's out. Patient states feeling much better and tolerated well. will continue to monitor urine output.
[2019-08-13 11:00] VITALS: BP 159/77
[2019-08-13] MEDS ORDERED: potassium Cl 20 mEq SR tablet PO PRN ×2 (11:20)
[2019-08-13] MEDS ORDERED: magnesium Cl slow-release 64mg tablet PO PRN (11:20)
[2019-08-13] MEDS ORDERED: magnesium 4gm in 100ml NS 100 ML IV PRN (11:20)
[2019-08-13] MEDS ORDERED: potassium CL 10mEq/100ml bag 100 ML IV PRN (11:20)
[2019-08-13] MEDS ORDERED: potassium Cl 20 mEq SR tablet PO STA (11:47)
--- NOTE | 2019-08-13 14:00 | NUR ---
Educated patient on discharge instructions, patient states understanding that he needs to follow up with his primary care physician within two weeks, pt states he has an appointment with his MD on September 10, but will try to get in sooner. Educated pt on the change of his terazosin to tamsulosin, pt understands that he is to take tamsulosin twice a day. Bladder scanned the patient upon pt request and scan showed 154 cc's in his bladder. All patient belongings sent with patient, including patient's home medications from [facility] pharmacy.
[2019-08-13] MEDS ORDERED: CEPH500C5 PO (20:31)
== END 2019-08-13 13:55 | disposition home health service (06) | DRG 299 ==
LOC: ER 17:03 → ED HOLD 08-10 01:49 → PCU 3S 08-10 02:57
PROVIDERS: ADMIT Internal Medicine; ATTEND Internal Medicine
PROC: B42G1ZZ Computerized Tomography (CT Scan) of Left Lower Extremity Arteries using Low Osmolar Contrast (ICD-10-PCS; principal; 2019-08-09)
DX: I72.4 Aneurysm of artery of lower extremity (principal); N17.0 Acute kidney failure with tubular necrosis; I72.3 Aneurysm of iliac artery; I25.10 Atherosclerotic heart disease of native coronary artery without angina pectoris; S30.0XXA Contusion of lower back and pelvis, initial encounter; I10 Essential (primary) hypertension; E78.5 Hyperlipidemia, unspecified; F03.90 Unspecified dementia, unspecified severity, without behavioral disturbance, psychotic disturbance, mood disturbance, and anxiety; Z96.642 Presence of left artificial hip joint; E78.00 Pure hypercholesterolemia, unspecified; E03.9 Hypothyroidism, unspecified; J44.9 Chronic obstructive pulmonary disease, unspecified; N40.1 Benign prostatic hyperplasia with lower urinary tract symptoms; R33.8 Other retention of urine; Z79.899 Other long term (current) drug therapy; Z87.891 Personal history of nicotine dependence; Z95.1 Presence of aortocoronary bypass graft; Z90.49 Acquired absence of other specified parts of digestive tract
CPT/HCPCS: 36415; 72191; 72193; 73502; 80053; 84443; 85025; 85610; 87081; 93306; 97110; 97161; 97530; 99285; G0378; J2060; J7030; Q9967

== ENCOUNTER 2019-08-13 18:49 | Emergency (ER) | payer MEDICARE, MEDICAID ==
[~2019-08-13] VITALS: Ht 167.6 cm; Wt 65.9 kg
[~2019-08-13 18:49] MED LIST changes: -ATEN-169 PO; +LOSA50TA64 PO; -PHEN-824 PO
--- NOTE | 2019-08-13 19:17 | NUR ---
ELENA NEWTON CELL: [phone], HOME: [phone]. WILL BE PT RIDE HOME
[2019-08-13] MEDS ORDERED: LIDOcaine 2% 10ml TOPICAL JELLY (Urojet) TP ONE (19:20)
[2019-08-13 20:11] LABS: CLARITY,URINE CLEAR (Clear); COLOR,URINE YELLOW (Yellow); GLUCOSE, URINE NEGATIVE (Neg); KETONES,URINE NEGATIVE (Neg); LEUKOCYTE ESTERASE ,URINE TRACE (Neg); NITRITES, URINE NEGATIVE (Neg); OCCULT BLOOD,URINE LARGE (Neg); PH,URINE 5.5 (4.8-8.0); PROTEIN,URINE NEGATIVE (Neg)
[2019-08-13 20:15] LABS: UA COLLECTION TYPE FOLEY CATH
[2019-08-13 20:17] LABS: BACTERIA,URINE 2+ /HPF (Neg); RBC,URINE 0-2 /HPF (0-2); SQUAMOUS EPITHELIAL CELL,UR FEW /LPF (FEW)
[2019-08-13] MEDS ORDERED: CEPH500C5 PO (20:31)
[2019-08-13 22:57] VITALS: BP 168/87
== END 2019-08-13 21:25 | disposition home or self-care (01) ==
LOC: ER 18:49
DX: R33.9 Retention of urine, unspecified (principal); R10.2 Pelvic and perineal pain; I25.10 Atherosclerotic heart disease of native coronary artery without angina pectoris; E78.00 Pure hypercholesterolemia, unspecified; I10 Essential (primary) hypertension; J44.9 Chronic obstructive pulmonary disease, unspecified; E03.9 Hypothyroidism, unspecified; M19.90 Unspecified osteoarthritis, unspecified site; Z87.440 Personal history of urinary (tract) infections; Z90.89 Acquired absence of other organs; Z98.890 Other specified postprocedural states; Z60.2 Problems related to living alone; Z88.0 Allergy status to penicillin; Z91.018 Allergy to other foods; Z88.8 Allergy status to other drugs, medicaments and biological substances; Z79.82 Long term (current) use of aspirin; Z79.899 Other long term (current) drug therapy
CPT/HCPCS: 51702; 81001; 87077; 87088; 87186; 99284

== ENCOUNTER 2019-08-21 03:04 | Emergency (ER) | payer MEDICARE, MEDICAID ==
[~2019-08-21] VITALS: Ht 177.8 cm; Wt 63.6 kg
[2019-08-21 03:08] VITALS: BP 144/87
== END 2019-08-21 04:45 | disposition home or self-care (01) ==
LOC: ER 03:05
DX: R33.9 Retention of urine, unspecified (principal); R10.2 Pelvic and perineal pain; I25.10 Atherosclerotic heart disease of native coronary artery without angina pectoris; E78.00 Pure hypercholesterolemia, unspecified; I10 Essential (primary) hypertension; J44.9 Chronic obstructive pulmonary disease, unspecified; E03.9 Hypothyroidism, unspecified; M19.90 Unspecified osteoarthritis, unspecified site; Z90.49 Acquired absence of other specified parts of digestive tract; Z90.89 Acquired absence of other organs; Z98.890 Other specified postprocedural states; Z88.0 Allergy status to penicillin; Z91.018 Allergy to other foods; Z79.82 Long term (current) use of aspirin; Z79.899 Other long term (current) drug therapy
CPT/HCPCS: 51702; 99284

== ENCOUNTER 2019-09-12 06:35 | Emergency (ER) | payer MEDICARE, MEDICAID ==
[~2019-09-12] VITALS: Ht 182.9 cm; Wt 65.0 kg
--- NOTE | 2019-09-12 07:22 | NUR ---
awaiting for MD to order pain medication prior to gait test.
[2019-09-12] MEDS ORDERED: HYDROcodone/acetaminophen 10/325mg tab PO ONE (07:25)
[2019-09-12] MEDS ORDERED: morphine 2 MG/ML inj. syringe IV STA (07:38)
--- NOTE | 2019-09-12 07:38 | NUR ---
patient refused norco,received a verbal order for morphine 2mgiv.
[2019-09-12 07:54] VITALS: BP 156/92
== END 2019-09-12 07:55 | disposition home or self-care (01) ==
LOC: ER 06:35
DX: S70.02XA Contusion of left hip, initial encounter (principal); I25.10 Atherosclerotic heart disease of native coronary artery without angina pectoris; E78.00 Pure hypercholesterolemia, unspecified; I10 Essential (primary) hypertension; J44.9 Chronic obstructive pulmonary disease, unspecified; E03.9 Hypothyroidism, unspecified; M19.90 Unspecified osteoarthritis, unspecified site; Z90.49 Acquired absence of other specified parts of digestive tract; Z90.89 Acquired absence of other organs; Z98.890 Other specified postprocedural states; Z88.0 Allergy status to penicillin; Z88.8 Allergy status to other drugs, medicaments and biological substances; Z79.82 Long term (current) use of aspirin; Z79.899 Other long term (current) drug therapy; W19.XXXA Unspecified fall, initial encounter; Y93.89 Activity, other specified; Y92.89 Other specified places as the place of occurrence of the external cause; Y99.8 Other external cause status
CPT/HCPCS: 73502; 96374; 99284; J2270

== ENCOUNTER 2020-03-28 09:20 | Emergency (ER) | payer MEDICARE, MEDICAID ==
[~2020-03-28] VITALS: Ht 182.9 cm; Wt 66.0 kg
[2020-03-28 10:32] VITALS: BP 164/88
== END 2020-03-28 10:36 | disposition home or self-care (01) ==
LOC: ER 09:21
DX: M25.552 Pain in left hip (principal); Z96.642 Presence of left artificial hip joint; I25.10 Atherosclerotic heart disease of native coronary artery without angina pectoris; E78.00 Pure hypercholesterolemia, unspecified; I10 Essential (primary) hypertension; J44.9 Chronic obstructive pulmonary disease, unspecified; E07.9 Disorder of thyroid, unspecified; M19.90 Unspecified osteoarthritis, unspecified site; Z87.440 Personal history of urinary (tract) infections; Z87.81 Personal history of (healed) traumatic fracture; Z90.49 Acquired absence of other specified parts of digestive tract; Z95.5 Presence of coronary angioplasty implant and graft; Z88.0 Allergy status to penicillin; Z91.018 Allergy to other foods; Z88.8 Allergy status to other drugs, medicaments and biological substances; Z79.82 Long term (current) use of aspirin; Z79.899 Other long term (current) drug therapy
CPT/HCPCS: 73502; 99283

== ENCOUNTER 2020-11-15 14:53 | Emergency (ER) | payer MEDICARE, MEDICAID ==
[~2020-11-15] VITALS: Ht 165.1 cm; Wt 68.2 kg
[~2020-11-15 14:53] MED LIST changes: -ACET-2119 PO; +CLOP75TA34 PO; -FLO0.4C PO; +LEVO75TA7 PO; -LEVO88TA2 PO; -NITR0.4T51 SL
[2020-11-15] MEDS ORDERED: HYDROcodone/acetaminophen 5mg/325mg tablet PO ONE (15:15)
[2020-11-15] MEDS ORDERED: ondansetron 4mg rapidly disintigrating tab PO ONE (15:15)
[2020-11-15] MEDS ORDERED: TRAM50TA2 PO (16:17)
[2020-11-15 16:56] VITALS: BP 134/88
== END 2020-11-15 17:00 | disposition home or self-care (01) ==
LOC: ER 15:04
DX: M54.50 Low back pain, unspecified (principal); M62.838 Other muscle spasm; I25.10 Atherosclerotic heart disease of native coronary artery without angina pectoris; E78.00 Pure hypercholesterolemia, unspecified; I10 Essential (primary) hypertension; J44.9 Chronic obstructive pulmonary disease, unspecified; E03.9 Hypothyroidism, unspecified; M19.90 Unspecified osteoarthritis, unspecified site; Z87.81 Personal history of (healed) traumatic fracture; Z90.49 Acquired absence of other specified parts of digestive tract; Z95.5 Presence of coronary angioplasty implant and graft; Z87.440 Personal history of urinary (tract) infections; Z88.0 Allergy status to penicillin; Z91.018 Allergy to other foods; Z79.82 Long term (current) use of aspirin; Z79.899 Other long term (current) drug therapy
CPT/HCPCS: 72131; 99283; 99284

== ENCOUNTER 2021-05-05 17:35 | Emergency (ER) | payer MEDICARE, MEDICAID ==
[~2021-05-05] VITALS: Ht 182.9 cm; Wt 65.9 kg
[2021-05-05 18:03] VITALS: BP 114/67
== END 2021-05-05 19:15 | disposition home or self-care (01) ==
LOC: ER 17:35
DX: R50.9 Fever, unspecified (principal); Z20.822 Contact with and (suspected) exposure to COVID-19; J02.9 Acute pharyngitis, unspecified; R11.0 Nausea; I25.10 Atherosclerotic heart disease of native coronary artery without angina pectoris; E78.00 Pure hypercholesterolemia, unspecified; I10 Essential (primary) hypertension; J44.9 Chronic obstructive pulmonary disease, unspecified; E03.9 Hypothyroidism, unspecified; M19.90 Unspecified osteoarthritis, unspecified site; Z87.440 Personal history of urinary (tract) infections; Z90.89 Acquired absence of other organs; Z98.890 Other specified postprocedural states; Z95.1 Presence of aortocoronary bypass graft; Z88.0 Allergy status to penicillin; Z88.8 Allergy status to other drugs, medicaments and biological substances; Z79.82 Long term (current) use of aspirin; Z79.899 Other long term (current) drug therapy
CPT/HCPCS: 71045; 87635; 99284; C9803

== ENCOUNTER 2022-08-24 13:48 | Emergency (ER) | payer MEDICARE, MEDICAID ==
[~2022-08-24] VITALS: Ht 182.9 cm; Wt 65.0 kg
[~2022-08-24 13:48] MED LIST changes: -ATOR40TA PO; +ATOR40TA72 PO; -CLOP75TA34 PO
[2022-08-24 15:42] LABS: BASOPHILS # (AUTO) 0.1 X10'3 (0-0.2); BASOPHILS % (AUTO) 1.2 % (0-1); EOSINOPHILS # (AUTO) 0.3 X10'3 (0-0.9); EOSINOPHILS % (AUTO) 5.4 % (0-6); HEMATOCRIT 31.9 % (42.0-52.0); HEMOGLOBIN 10.3 g/dl (14.0-17.9); MEAN CORPUSCULAR HEMOGLOBIN 29.3 PG (27.0-31.0); MEAN CORPUSCULAR HGB CONC 32.4 g/dL (33.0-36.5); MEAN CORPUSCULAR VOLUME 90.3 FL (78-98); MEAN PLATELET VOLUME 8.3 FL (7.4-10.4); MONOCYTES # (AUTO) 0.6 X10'3 (0-0.9); MONOCYTES % (AUTO) 12.2 % (2-12); NEUTROPHILS # (AUTO) 3.1 X10'3 (1.8-7.7); NEUTROPHILS % (AUTO) 61.2 % (42-75); PLATELET COUNT 153 X10'3 (140-440); RED BLOOD COUNT 3.53 X10'6 (4.70-6.10); RED CELL DISTRIBUTION WIDTH 14.9 % (11.5-14.5); WHITE BLOOD COUNT 5.1 X10'3 (4.5-11.0)
[2022-08-24 15:55] LABS: ALANINE AMINOTRANSFERASE 17 U/L (12-78); ALKALINE PHOSPHATASE 68 IU/L (46-116); ANION GAP 9 (8-16); ASPARTATE AMINO TRANSFERASE 19 U/L (10-37); BILIRUBIN,TOTAL 2.4 MG/DL (0.1-1.0); BLOOD UREA NITROGEN 16 MG/DL (7-18); BUN/CREATININE RATIO 10.2 (10.0-20.0); CALCIUM 8.2 MG/DL (8.5-10.1); CHLORIDE 108 MMOL/L (99-107); CREATININE 1.57 MG/DL (0.60-1.10); GLUCOSE 92 MG/DL (70-104); POTASSIUM 3.6 MMOL/L (3.5-5.1); SODIUM 146 MMOL/L (135-145); TOTAL CARBON DIOXIDE 28.6 MMOL/L (24-32); TOTAL PROTEIN 5.9 G/DL (6.4-8.2); eGFR 42 ML/MIN
[2022-08-24 16:40] VITALS: BP 157/88
[2022-08-24] MEDS ORDERED: ACET1TAB96 PO (16:41)
[2022-08-24] MEDS ORDERED: COLC1TAB2 PO (16:41)
== END 2022-08-24 17:18 | disposition home or self-care (01) ==
LOC: ER 13:48
DX: S72.092A Other fracture of head and neck of left femur, initial encounter for closed fracture (principal); I11.0 Hypertensive heart disease with heart failure; E78.00 Pure hypercholesterolemia, unspecified; E11.9 Type 2 diabetes mellitus without complications; E07.9 Disorder of thyroid, unspecified; J44.9 Chronic obstructive pulmonary disease, unspecified; Z87.81 Personal history of (healed) traumatic fracture; Z90.49 Acquired absence of other specified parts of digestive tract; Z88.0 Allergy status to penicillin; Z79.899 Other long term (current) drug therapy; Z88.5 Allergy status to narcotic agent; Z91.040 Latex allergy status; W18.39XA Other fall on same level, initial encounter; Y93.89 Activity, other specified; Y92.89 Other specified places as the place of occurrence of the external cause; Y99.8 Other external cause status
CPT/HCPCS: 36415; 73502; 80053; 84145; 84550; 85025; 99284

== ENCOUNTER 2022-09-15 05:28 | Emergency (ER) | payer MEDICARE, MEDICAID ==
[~2022-09-15] VITALS: Ht 180.3 cm; Wt 68.2 kg
[~2022-09-15 05:28] MED LIST changes: +ACET1TAB96 PO; +COLC1TAB2 PO
[2022-09-15 05:42] VITALS: BP 148/81; PULSE 70; RESP 14; TEMP 98; O2SAT 98
[2022-09-15] MEDS ORDERED: NAPR-56 PO (10:19)
== END 2022-09-15 10:42 | disposition home or self-care (01) ==
LOC: ER 05:28
DX: M25.561 Pain in right knee (principal); I25.10 Atherosclerotic heart disease of native coronary artery without angina pectoris; E78.00 Pure hypercholesterolemia, unspecified; I10 Essential (primary) hypertension; J44.9 Chronic obstructive pulmonary disease, unspecified; E11.9 Type 2 diabetes mellitus without complications; E03.9 Hypothyroidism, unspecified; M19.90 Unspecified osteoarthritis, unspecified site; Z87.81 Personal history of (healed) traumatic fracture; Z95.5 Presence of coronary angioplasty implant and graft; Z79.899 Other long term (current) drug therapy; Z79.82 Long term (current) use of aspirin; Z88.0 Allergy status to penicillin; Z88.8 Allergy status to other drugs, medicaments and biological substances; Z88.5 Allergy status to narcotic agent; Z91.018 Allergy to other foods
CPT/HCPCS: 73560; 99284